=== PATIENT | male | born 2000 | race Caucasian/White ===

== ENCOUNTER 2025-03-02 10:27 | Emergency (ER) | payer MEDICAID ==
[~2025-03-02] VITALS: Ht 167.6 cm; Wt 77.0 kg
[2025-03-02 10:33] VITALS: TEMP 99
[2025-03-02] MEDS ORDERED: LOSA-381 PO (10:33)
[2025-03-02] MEDS ORDERED: METO25 PO (10:33)
[2025-03-02] MEDS: SODIUM CHLORIDE 0.9% 1,000 ML IV ONE (10:52)
[2025-03-02 10:55] LABS: PLATELET COUNT (AUTO) 350 K/uL (150-450); RED BLOOD CELL COUNT(AUTO) 5.45 MIL/uL (4.50-5.90); RED CELL DISTRIBUTION WIDTH 12.4 % (11.5-14.5); WHITE BLOOD COUNT (AUTO) 8.2 K/uL (4.5-11.0)
[2025-03-02 11:01] LABS: CALCIUM, TOTAL 9.2 mg/dL (8.8-10.5); CREATININE 0.99 mg/dL (0.60-1.30); GLOMERULAR FILTR. RATE CALC > 60 mL/min (>60); GLUCOSE,RANDOM 108 mg/dL (70-110); SODIUM SERUM 139 mmol/L (136-145); UREA NITROGEN, BLOOD 13 mg/dL (7-18)
[2025-03-02 11:07] LABS: ASPARTATE AMINOTRANSFERASE 20 U/L (15-37); TOTAL PROTEIN, SERUM 8.5 g/dL (6.4-8.2)
[2025-03-02 11:11] LABS: TROPONIN I-HIGH SENSITIVITY 7 ng/L (<76)
[2025-03-02 11:12] LABS: ALCOHOL, BLOOD (SERUM) < 3 mg/dL (0-10)
[2025-03-02 11:29] VITALS: BP 152/93; PULSE 110; RESP 16; O2SAT 99
== END 2025-03-02 11:57 | disposition left against medical advice (07) ==
LOC: EMS 10:34
DX: F12.90 Cannabis use, unspecified, uncomplicated (principal); R20.2 Paresthesia of skin; R00.0 Tachycardia, unspecified; I10 Essential (primary) hypertension; Z79.899 Other long term (current) drug therapy
CPT/HCPCS: 99284; 96360; 80048; 80076; 83735; 84484; 85025; 36415; 93005; G0480; J7030